=== PATIENT | female | born 1950 | race Caucasian/White ===

== ENCOUNTER 2017-05-08 05:59 | Day surgery (SDC) | payer OTHER ==
--- NOTE | 2017-05-06 16:05 | HP ---
DATE OF ADMISSION: 05/08/2017 - [facility] ATTENDING PROVIDER: Dr. Williamson * (DICTATED BY WILMAR FISCHER) HISTORY OF PRESENT ILLNESS: Ms. Crawford is a 66-year-old female who reports a fall on 11/29/2016. Appearance is that she has had 6/10 pain in the left knee. She feels like the knee gives out and hyperextends. At the time of the injury , she states that she fell backwards. She has difficulty ambulating and bending the knee. The patient is now scheduled for a left knee arthroscopy with partial medial meniscectomy, possible chondroplasty, possible synovectomy. Workers' comp injury. PAST MEDICAL HISTORY: 1. Phlebitis. 2. DVT. 3. Asthma. 4. Arthritis. 5. Depression. PAST SURGICAL HISTORY: 1. Hernia repair. 2. Right shoulder rotator cuff surgery. 3. Partial hysterectomy. 4. Neck surgery. Plate with four screws for cervical stabilization. MEDICATIONS: 1. Ambien CR 12.5 mg. 2. Vitamin D3 1,000 units. 3. Vitamin B12 1,000 mcg. 4. Gabapentin 300 mg for neck pain. 5. Fluoxetine Hydrochloride 40 mg. 6. Aspirin 325. ALLERGIES: ATROVENT (hypersensitivity reaction). FAMILY HISTORY: Paternal side: Prostate cancer, stroke. Maternal side: Breast cancer. SOCIAL HISTORY: The patient lives with significant other. The patient is a former smoker, quit in 2000, smoking since age of 24, quit age 51, one pack per day. Alcohol: Occasionally consumes alcohol, one 8 ounce mixed drink per day. REVIEW OF SYSTEMS: General: The patient denies any fevers, chills, or night sweats. No known anesthesia problems. HEENT: Denies any headaches, lightheadedness or syncopal episodes. Cardiothoracic: Denies any chest pain, heart palpitations, or edema. Pulmonary: Denies any shortness of breath with exertion, chronic cough, COPD. GI: Denies any nausea, vomiting, diarrhea, or constipation. : Denies any nocturia, urinary frequency, or urgency. Musculoskeletal: Admits to left knee pain and mechanical symptoms. Denies any low back pain or neck pain at this time. Neuro: Denies any paresthesia or numbness. Integument: Denies any abrasions, lesions, rashes, lumps or open sores. PHYSICAL EXAMINATION GENERAL: The patient is alert and oriented times three with appropriate mood and affect, appropriate dress and hygiene. HEENT: Normocephalic, atraumatic. Hearing and vision grossly intact. CARDIO: Regular rate and rhythm. Normal S1 and S2. No appreciable S3 or S4. No murmurs, rubs or gallops. PULMONARY: Lungs clear to auscultation bilaterally. No wheezes, rales or rhonchi. MUSCULOSKELETAL: Left lower extremity: Inspection of the knee reveals no erythema, no ecchymosis. Skin is warm, dry and intact. Range of motion is 10 to 120 degrees of flexion with pain at both terminal points. No varus or valgus instability. Negative Brandy's. Mildly positive Apley's. Positive Kiko's. The patient is full sensation intact to light touch distally with a 2+ dorsalis pedis pulse. IMAGING STUDIES: There was a left knee MRI acquired on 04/18/2017 which showed a nondisplaced degenerative tear of the medial meniscus. ASSESSMENT: Ms. Crawford is a 66-year-old female scheduled for 05/08/2017 for a left knee arthroscopy, partial medial meniscectomy, possible chondroplasty, and possible synovectomy. Total we discussed informed consent with the patient. She understands the risks and benefits of surgery. She wishes to proceed. 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 This was associated with phlebitis. Due to the history, we will be ordering Lovenox for the first two weeks after surgery, 30 mg per day. She accepts and agrees to the treatment plan. The patient will return 10 to 14 days postoperatively for suture removal and a follow-up. A prescription for Percocet 5/325 has been sent to the pharmacy of record, used for postoperative pain management. I-STOP has been checked. We will see the patient in the OR. WILMAR FISCHER [id number]/[facility] #: [id number] MTDD
[~2017-05-08 05:59] MED LIST: Buffered Lidocaine 0.9% SYRIN* 5 ML/SYR SYRINGE ONE; ceFAZolin 2 GM PREMIX (*) 2 GM/50 ML BAG IVPB ONE
[2017-05-08] MEDS ORDERED: methylPREDNISolone ACETATE 80* 80 MG/ML 1 ML VIAL ONE (06:59)
[2017-05-08] MEDS ORDERED: EPINEPHRINE 1 MG/ML 1 ML VIAL ONE (06:59)
[2017-05-08] MEDS ORDERED: Bupivacaine 0.5% SDV PF* 10-30ML VIAL ONE (07:00)
[2017-05-08] MEDS ORDERED: fentaNYL* 50 MCG/ML 2 ML VIAL (100 MCG VIAL) ONE ×2 (07:32→09:31)
[2017-05-08] MEDS ORDERED: Midazolam* 1 MG/ML 2 ML VIAL (2 MG) ONE (07:33)
[2017-05-08] MEDS ORDERED: Lidocaine 2% PF * 5 ML VIAL ONE (08:01)
[2017-05-08] MEDS ORDERED: Dexamethasone IV* 4 MG/ML 1 ML (4 MG) ONE (08:01)
[2017-05-08] MEDS ORDERED: Ondansetron INJ* 2 MG/ML VIAL ONE (08:01)
[2017-05-08] MEDS ORDERED: Propofol* 10 MG/ML 20 ML BTL IV PUSH ONE (08:01)
[2017-05-08] MEDS ORDERED: EPHEDrine (Pressors)* 50 MG/ML VIAL ONE (08:01)
[2017-05-08] MEDS ORDERED: Ketorolac INJ* 30 MG/ML 1 ML VIAL ONE (08:33)
[2017-05-08] MEDS ORDERED: oxyCODONE/Acetamin 5/325 MG* TAB PO PRN (08:47)
[2017-05-08] MEDS ORDERED: Naloxone* 0.4 MG/ML 1 ML VIAL IV PRN (08:47)
[2017-05-08] MEDS ORDERED: oxyCODONE/Acetamin 5/325 MG* TAB ONE (08:58)
[2017-05-08] MEDS ORDERED: HYDROmorphone INJ* 2 MG/ML CARPUJECT SYRINGE ONE (09:00)
[2017-05-08] MEDS: HYDROmorphone INJ* 1 MG/ML CARPUJECT SYRINGE IV PRN ×2 (09:02→09:10)
[2017-05-08] MEDS ORDERED: Cyclobenzaprine TAB* 10 MG PO PRN (09:59)
[2017-05-08 10:48] VITALS: BP 102/55
--- NOTE | 2017-05-09 01:22 | OP ---
DATE OF OPERATION: 05/08/17 - [facility] DATE OF : 52 ATTENDING SURGEON: Hansa Williamson MD LABORER [employer]AF: WILMAR Carpenter. Mr. Carrera did help throughout the procedure with preparation of the leg, manipulation of the knee and wound closure. ANESTHESIOLOGIST: Dr. Marcus. ANESTHESIA: General. PRE-OP DIAGNOSES: Left knee pain and medial meniscal tear. POST-OP DIAGNOSES: Left knee medial meniscal tear, lateral meniscal tear, mild to moderate degenerative osteoarthritis. OPERATIVE PROCEDURE: Left knee arthroscopy with partial medial meniscectomy and partial lateral meniscectomy. ESTIMATED BLOOD LOSS: Less than 25 cc. COMPLICATIONS: None. SPECIMEN: None. BRIEF HISTORY/INDICATION: Ms. 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 She was initially diagnosed with an arthritic effusion and LCL strain. Conservative treatment failed to relieve her pain and after multiple sessions of physical therapy, we ordered an MRI because of continued mechanical symptoms. MRI showed a large medial meniscal tear. She elected to undergo left knee arthroscopy with partial medial meniscectomy and was scheduled for surgery. Informed consent was obtained from the patient. She understood the risk surgery included but were not limited to bleeding, infection, damage to nearby structures, continued pain, need for further surgery, retear of the meniscus, continued arthritic pain and progression of arthritis, stroke, heart attack, blood clot and . She wished to proceed. INTRAOPERATIVE FINDINGS: Intraoperatively, the patient was noted to have grade 2 and 3 Outerbridge cartilage changes in the patellofemoral compartment with some cartilage fraying along the medial patellar facet. Grade 1 and 2 cartilage changes along the medial femoral condyle and medial tibial plateau. The patient had a large longitudinal type tear in the posterior 50% of the medial meniscus. This involved the white-red zone and red-red zone. The patient had a radial tear in the midportion of the lateral meniscus involving the white-white and white-red zone. DESCRIPTION OF PROCEDURE: Ms. Crawford was identified in the preanesthesia unit. Her left lower extremity was marked as the correct operative side. Informed consent was signed and placed in the chart. The patient was taken to the operating room and placed under general anesthesia. Her left lower extremity was prepped and draped in the usual sterile fashion. Preop timeout was made to correctly identify the patient's side and site. Appropriate perioperative antibiotics were given within 1 hour of incision. A 0.5 cm anterolateral portal incision was made along the anterolateral joint line. Trocar was introduced. As soon as the light and water sources were turned on, there was immediate visualization of suprapatellar pouch. A tour of the knee joint was performed. Suprapatellar pouch had no obvious abnormalities. Patellofemoral compartment showed some frayed cartilage with grade 2 and 3 Outerbridge cartilage changes. The medial gutter had some slight synovitis, but no significant plica or loose body. Medial compartment showed a large tear of the posterior portion of the medial meniscus with anterior displacement. Medial femoral condyle and tibial plateau showed some minimal grade 1 and 2 Outerbridge cartilage changes. ACL and PCL appeared to be intact. The knee was placed in a [id number] position and showed a radial tear in the midportion of the lateral meniscus. No significant degenerative changes in this compartment. Lateral gutter showed no loose body or plica. Under direct visualization, a medial portal incision was made with a #15 blade. The probe was introduced and a second tour of the knee joint was performed. No additional findings were noted. The medial meniscus tear was a large longitudinal tear involving the white-red zone and red-red zone of the posterior 50% of the medial meniscus. Straight biter was used to perform partial medial meniscectomy. Shaver and radiofrequency ablation wand were used to further smooth the edge of the medial meniscus. Further probing showed no displaceable additional tears. The knee was then placed in a [id number] position. A straight biter was used to perform partial lateral meniscectomy in the white-red zone and the radial tear was excised. The knee was copiously irrigated with sterile saline. All instruments were removed without difficulty. The incisions were closed using interrupted 3-0 nylon suture. Intraarticular injection of 80 mg Depo-Medrol and 6 cc 0.25% Marcaine was placed in the knee joint. Sterile Xeroform, 4x4's, and Webril were used to cover the incisions. Coy wrap and cold pack were placed over this. The patient's anesthesia was reversed without difficulty. She was taken to the PACU in stable condition. Intended weightbearing will be weightbearing as tolerated. Intended DVT prophylaxis will be Lovenox for the next 2 weeks due to her history of DVT. [id number]/[facility] #: [id number] KUTRD
== END 2017-05-08 10:49 | disposition home or self-care (01) ==
LOC: OR 05:59
PROVIDERS: ATTEND Orthopaedic Surgery Adult Reconstructive Orthopaedic Surgery
DX: S83.242A Other tear of medial meniscus, current injury, left knee, initial encounter (principal); S83.282A Other tear of lateral meniscus, current injury, left knee, initial encounter; J45.909 Unspecified asthma, uncomplicated; M19.90 Unspecified osteoarthritis, unspecified site; F32.9 Major depressive disorder, single episode, unspecified; M17.12 Unilateral primary osteoarthritis, left knee; Z86.718 Personal history of other venous thrombosis and embolism; Z87.891 Personal history of nicotine dependence; Z88.8 Allergy status to other drugs, medicaments and biological substances; Z79.82 Long term (current) use of aspirin; X58.XXXA Exposure to other specified factors, initial encounter
CPT/HCPCS: A9270-GY; J0690; J1040; J1100; J1170; J1885; J2250; J2405; J2704; J3010

== ENCOUNTER 2021-09-27 08:19 | Observation (INO) ==
[~2021-09-27 08:19] MED LIST changes: -Buffered Lidocaine 0.9% SYRIN* 5 ML/SYR SYRINGE ONE; +Buffered Lidocaine 1% SYRIN 1 ml INTRADERM ONE; +Clindamycin 900 MG/D5W BAG 900 MG/50 ML BAG IVPB ONE; +Lactated Ringers 1000 ml BAG 1,000 ML IV SCH; +Lidocaine 1% MPF 5 ML VIAL ONE; +Naloxone 0.4 mg VIAL 0.4 mg/ml 1 ml VIAL IV PRN; +Ondansetron 4 mg VIAL 2 MG/ML 2 ml VIAL IV PRN; +ROPIVACAINE 5 MG/ML 30 ML BTL (0.5%) ONE; -ceFAZolin 2 GM PREMIX (*) 2 GM/50 ML BAG IVPB ONE
[2021-09-27] MEDS ORDERED: Midazolam 2 mg/2 ml VIAL 1 mg/ml 2 ml VIAL (2 mg) ONE ×2 (09:33→11:12)
[2021-09-27] MEDS ORDERED: Dexamethasone IV 4 MG/ML VIAL 1 ml VIAL ONE (09:33)
[2021-09-27] MEDS ORDERED: fentaNYL 100 mcg/2 ml 50 MCG/ML VIAL ONE (11:16)
[2021-09-27] MEDS ORDERED: Bupivacaine 0.25% SDV PF 10 ML VIAL INJ ONE (11:53)
[2021-09-27] MEDS ORDERED: Morphine 2 MG/ML SYRINGE IV PRN (11:58)
[2021-09-27] MEDS ORDERED: Lactulose 30 ml UDC PO PRN (11:58)
[2021-09-27] MEDS ORDERED: Ondansetron 4 mg VIAL 2 MG/ML 2 ml VIAL IV PRN (11:58)
[2021-09-27] MEDS ORDERED: Ondansetron ODT 4 mg TAB 4 MG TAB PO PRN (11:58)
[2021-09-27] MEDS ORDERED: Magnesium Hydroxide LIQ 30 ML UDC PO PRN (11:58)
[2021-09-27] MEDS: Lactated Ringers 1000 ml BAG 1,000 ML IV SCH ×2 (15:40→17:48)
[2021-09-27] MEDS: Lactated Ringers 1000 ml BAG 1,000 ML IV ONE (16:49)
[2021-09-27 17:13] LABS: ABS Lymphocytes 1.4 10^3/ul (1.0-4.8); ABS Monocytes 0.2 10^3/ul (0-0.8); ABS Neutrophils 8.3 10^3/ul (1.5-7.7); Eosinophil % 0.3 %; Hematocrit 37 % (35-47); Hemoglobin 12.3 g/dL (12.0-16.0); Lymphocyte % 13.9 %; Mean Corpuscular HGB Conc 34 g/dL (31-36); Mean Corpuscular Hemoglobin 31 pg (27-31); Mean Corpuscular Volume 92 fL (80-97); Mean Platelet Volume 8.8 fL (7.4-10.4); Platelet Count 220 10^3/uL (150-450); Red Blood Count 4.01 10^6 /uL (3.70-4.87); Red Cell Distribution Width 13 % (10-15); White Blood Count 9.9 10^3/uL (3.5-10.8)
[2021-09-27] MEDS: Clindamycin 600 MG/D5W BAG 600 MG/50 ML BAG IV SCH (21:19)
[2021-09-27] MEDS: Magnesium Hydroxide LIQ 30 ML UDC PO SCH (21:19)
[2021-09-28] MEDS: Clindamycin 600 MG/D5W BAG 600 MG/50 ML BAG IV SCH ×2 (03:57→11:37)
[2021-09-28] MEDS: Lactated Ringers 1000 ml BAG 1,000 ML IV SCH (05:02)
[2021-09-28 05:56] LABS: Hematocrit 31 % (35-47); Hemoglobin 10.4 g/dL (12.0-16.0); Mean Platelet Volume 8.6 fL (7.4-10.4); Platelet Count 203 10^3/uL (150-450)
[2021-09-28 06:17] LABS: Calcium 8.7 mg/dL (8.6-10.3); Potassium 4.2 mmol/L (3.5-5.0); eGFR CKD-EPI 93.6 (>60)
[2021-09-28] MEDS: Magnesium Hydroxide LIQ 30 ML UDC PO SCH (09:00)
[2021-09-28] MEDS ORDERED: Vitamin THERAPEUTIC TAB PO SCH (09:00)
[2021-09-28] MEDS ORDERED: NS 0.9% 1000 ml BAG 1,000 ML IV ONE ×2 (09:14→11:20)
[2021-09-28 13:51] VITALS: BP 117/69
== END 2021-09-28 16:50 | disposition home or self-care (01) ==
LOC: INTOOBSV 08:19 → AA 08:19 → SSU 15:53
PROVIDERS: ADMIT Orthopaedic Surgery Adult Reconstructive Orthopaedic Surgery; ATTEND Orthopaedic Surgery Adult Reconstructive Orthopaedic Surgery